=== PATIENT | female | born 1965 | race Caucasian/White ===

== ENCOUNTER → 2023-11-25 18:09 | Outpatient (REF) | payer OTHER, SELFPAY | LOC: WDC 18:09 | PROVIDERS: ATTENDING PHYSICIAN Obstetrics & Gynecology; FAMILY PHYSICIAN Family Medicine | DX: Z12.31 Encounter for screening mammogram for malignant neoplasm of breast (principal) | CPT/HCPCS: 77063; 77067 ==

== ENCOUNTER 2023-12-28 21:03 | Emergency (ER) | payer OTHER, SELFPAY ==
[2023-12-28 21:14] VITALS: BP 123/85
[2023-12-28 21:31] LABS: % Basophils 0.8 % (0-2); % Eosinophils 0.5 % (0-6); % Immature Granulocytes 0.3 % (0-0.5); % Lymphocytes 18.7 % (20.5-51.1); % Monocytes 8.4 % (1.7-9.3); % Neutrophils 71.3 % (42.2-75.2); Absolute Basophils 0.1 10^3/uL (0-0.2); Absolute Eosinophils 0.1 10^3/uL (0-0.7); Absolute Lymphocytes 1.9 10^3/uL (1.2-3.4); Absolute Monocytes 0.8 10^3/uL (0.1-0.6); Absolute Neutrophils 7.1 10^3/uL (1.4-6.5); Hematocrit 38.1 % (37.0-47.0); Hemoglobin 13.6 g/dL (12.0-16.0); Mean Corp Hgb Conc. 35.7 g/dL (33.0-37.0); Mean Corpuscular Hgb 30.8 pg (27.0-31.0); Mean Corpuscular Volume 86.4 fL (81.0-99.0); Mean Platelet Volume 10.6 fL (7.4-10.4); Nucleated Red Blood Cells % 0 %; Platelet Count 249 10^3/uL (130-400); Red Blood Cell Count 4.41 10^6/uL (4.20-5.40); Red Cell Dist. Width 12.9 % (11.5-14.5)
[2023-12-28 21:49] LABS: ALT (SGPT) 23 U/L (0-35); AST (SGOT) 23 U/L (14-36); Albumin 4.7 g/dl (3.5-5.0); Alkaline Phosphatase 59 U/L (38-126); Blood Urea Nitrogen 6 mg/dl (7-17); Calcium 9.6 mg/dl (8.4-10.2); Carbon Dioxide 20 mmol/L (22-30); Chloride 104 mmol/L (98-107); Glucose 112 mg/dl (70-99); Lipase 71 U/L (23-300); Potassium 3.9 mmol/L (3.5-5.1); Sodium 139 mmol/L (135-145); Total Bilirubin 0.9 mg/dl (0.2-1.3); Total Protein 7.1 g/dl (6.3-8.2); eGFR > 60.00
--- NOTE | 2023-12-29 00:07 | ED.GENMED ---
History of Present Illness
<ELROY Person - Last Filed: 12/29/23 00:55>
General
Chief Complaint: Abdominal Symptoms
Source: patient
Time Seen by Provider: 12/29/23 00:07
Nursing documentation reviewed up to this point in time: agreed with
History of Present Illness
History of Present Illness:
Patient is a 58 year old female with a PMH of a colectomy presenting to the ED with complaints of diarrhea x 4 days. She had an uncomplicated colectomy on 12/06/23 and was discharged from the hospital on 12/23/23. She had parts sigmoid colon
descending colon and rectum removed. She was allowed to eat normal food after discharge and on Wednesday she had shrimp salad. She had one bout of yellow diarrhea. Wednesday she had scallops and shrimp and had multiple episodes of diarrhea. Since then
she hasn't been drinking much and only eating a couple crackers and pieces of toast per day. She admits to feeling dehydrated. The diarrhea has been more frequent with time. She states today she went 19 times. Right before she has to go she gets an
episode of nausea and mild crampy abdominal pain but denies any vomiting or current abdominal pain. Patient states she hasn't tried any medication and nothing makes it worse. The bowel movements today have been around once an hour. She states they
are all the same, yellow in color with a watery/slimy consistency. She denies blood in stool. Patient denies sob fever headache dizziness flank pain rectal bleeding rectal pain.
Patient has a history of a colectomy which was uncomplicated. She does not take any daily medications.
Review of Systems
<ELROY Person - Last Filed: 12/29/23 00:55>
Review of Systems
Allergies reviewed?: Yes
Constitutional: Reports no symptoms
Respiratory: Reports no symptoms
Cardiac: Reports no symptoms
ABD/GI: Reports abdominal pain, nausea and diarrhea
Neurological: Reports no symptoms
Phy Exam
<DonteELROY Corona - Last Filed: 12/29/23 00:55>
General Physical Exam
General Presentation: well appearing
General age: appears stated age
General Habitus: normal
General Mental: alert
Cardiovascular Exam
Cardiovascular Exam: regular rate/rhythm, no edema, no gallop, no JVD and no murmur
Pulmonary Exam
Pulmonary Exam: lungs clear, no respiratory distress, no rales, chest non tender, no crackles, no rhonchi, no stridor, no wheezing and no cough
Gastrointestinal Exam
Gastrointestinal Exam: normal bowel sounds, non tender, soft, no organomegaly, no pulsatile mass, non distended and no cva tenderness
Palpation: generalized: No tenderness
Course
<Donte Leticia, STPA - Last Filed: 12/29/23 00:55>
Orders/Labs/Results
Orders:
Orders
12/28/23 21:23
Complete Blood Count/With Diff Urgent
Comprehensive Metabolic Panel Urgent
Lipase Urgent
12/29/23 01:46
Abdomen/Pelvis wo Contrast CT [CT Abd/pelvis Wo Iv Cont] Urgent
Comment:
Reason For Exam: diarrhea
Abnormal Lab Results
12/28/23
21:23
MPV 10.6 H fL
(7.4-10.4)
Absolute Neuts (auto) 7.1 H 10^3/uL
(1.4-6.5)
Absolute Monos (auto) 0.8 H 10^3/uL
(0.1-0.6)
Lymphocytes % 18.7 L %
(20.5-51.1)
Carbon Dioxide 20 L mmol/L
(22-30)
BUN 6 L mg/dl
(7-17)
Glucose 112 H mg/dl
(70-99)
12/28/23 21:23
12/28/23 21:23
Vital Signs
Initial and Last Documented VS:
Initial Vital Signs
Temp Pulse Resp Pulse Ox
98.5 F 106 19 98
12/28/23 21:11 12/28/23 21:11 12/28/23 21:11 12/28/23 21:11
Last Documented Vital Signs
Temp Pulse Resp BP Pulse Ox
98.5 F 106 19 123/85 98
12/28/23 21:11 12/28/23 21:11 12/28/23 21:11 12/28/23 21:14 12/28/23 21:11
<Jan Martin, - Last Filed: 12/29/23 03:59>
Orders/Labs/Results
Orders:
Orders
12/28/23 21:23
Complete Blood Count/With Diff Urgent
Comprehensive Metabolic Panel Urgent
Lipase Urgent
12/29/23 01:46
Abdomen/Pelvis wo Contrast CT [CT Abd/pelvis Wo Iv Cont] Urgent
Comment:
Reason For Exam: diarrhea
Abnormal Lab Results
12/28/23
21:23
MPV 10.6 H fL
(7.4-10.4)
Absolute Neuts (auto) 7.1 H 10^3/uL
(1.4-6.5)
Absolute Monos (auto) 0.8 H 10^3/uL
(0.1-0.6)
Lymphocytes % 18.7 L %
(20.5-51.1)
Carbon Dioxide 20 L mmol/L
(22-30)
BUN 6 L mg/dl
(7-17)
Glucose 112 H mg/dl
(70-99)
12/28/23 21:23
12/28/23 21:23
Vital Signs
Initial and Last Documented VS:
Initial Vital Signs
Temp Pulse Resp Pulse Ox
98.5 F 106 19 98
12/28/23 21:11 12/28/23 21:11 12/28/23 21:11 12/28/23 21:11
Last Documented Vital Signs
Temp Pulse Resp BP Pulse Ox
98.5 F 106 19 123/85 98
12/28/23 21:11 12/28/23 21:11 12/28/23 21:11 12/28/23 21:14 12/28/23 21:11
<ELROY Person - Last Filed: 12/29/23 00:55>
MDM/Problems Addressed
Differential Diagnosis Includes:
colectomy complication, gastroenteritis, dehydration,
MDM/Problems Addressed:
labs wnl give fluids and monitor
<ELROY Person - Last Filed: 12/29/23 00:55>
*Critical Care Note
Total Time (30-74mins, 75-104mins- exclusive of procedures): Not Applicable
<Jan Martin DO - Last Filed: 12/29/23 03:59>
Update Note
Update Note:
CT ABDOMEN AND PELVIS noncontrast
IMPRESSION:
Moderate to severe pancolonic wall thickening most compatible with a colitis. Most likely etiologies include infection (including C. difficile) and inflammation (i.e. ulcerative colitis).
Anastomosis in the rectosigmoid colon.
No bowel obstruction.
Small amount of pelvic free fluid.
In the left upper quadrant there is a 9 x 6 cm fatty area with a small amount of groundglass (for example series 201, image 40). This could be physiologic or related to lipomatosis, however an underlying lipomatous tumor cannot be excluded.
Consider short-term follow-up.
ED Attending Note
<ELROY Person - Last Filed: 12/29/23 00:55>
-
Portions of this chart may have been created with voice recognition software.� Occasional wrong word or��sound alike� substitutions may have occurred due to the inherent limitations of voice recognition software.
<Jan Martin DO - Last Filed: 12/29/23 03:59>
ED Attending Note
Patient seen and examined by attending physician: Yes
I performed the substantive portion of visit, reviewed & personally made and approve the management plan that is documented in note by myself or MICHELLE.: Yes
Discharge Plan
Departure
Patient Disposition: Home (Routine Discharge)
Date of Disposition: 12/29/23
Time of Disposition: 03:56
Patient with high blood pressure during this ER visit?: Yes
Condition: Good
Discharge Problem:
Abdominal pain, Colitis
Instructions: Colitis (DC), Abdominal Pain
Prescriptions:
New
ondansetron 4 mg tablet,disintegrating
4 mg PO TID PRN (Reason: nausea and vomiting) 4 Days Qty: 10 0RF
Referrals:
Tavo Lloyd MD [Family Provider] -
Activity Restrictions/Additional Instructions:
Your prescriptions were sent electronically to the pharmacy that you specified.
It was a pleasure meeting you and taking part in your care. We hope for your continued healing and wellness.
Please read discharge instructions in their entirety. However, they are for general education and may not describe your exact diagnosis at discharge. Information on your ER visit and medical conditions were discussed with you along with appropriate
follow up information...
If indicated, please take your medications as instructed and indicated on discharge paperwork.
Please schedule a follow up appointment as directed. Call to schedule an appointment
Please return to the emergency department with ANY change in, persisting, or worsening of symptoms. If any of your symptoms do not improve, or persist, or become more severe within 6-12 hours, please return to the emergency department for further
care.
Please return to the emergency department if you develop a headache, neck pain/stiffness, fever greater than 100.4F, chest pain, shortness of breath, persistent nausea, vomiting, slurred speech, difficulty walking, numbness/tingling, weakness, signs
of infection or any other symptoms that are worrisome to you.
If you have any questions or concerns please do not hesitate to call the Hospital at or E-mail me directly at [email or web address]
Interventions
Interventions:
*Risk Screen - Suicide Last Done: 12/28/23 21:04
*General Assessment Last Done: 12/28/23 21:17
*Neglect/Abuse Screening Last Done: 12/28/23 21:17
Discharge Date and Time
Print Language: SOMALI
[2023-12-29 04:00] VITALS: BP 137/79
[2023-12-29] MEDS: ZOFRAN ODT (ORALLY DISINTEGRATING) 4 MG PO (04:11)
== END 2023-12-29 04:50 | disposition home or self-care (01) ==
LOC: EMR 21:03
PROVIDERS: Emergency Medicine; EMERGENCY PHYSICIAN Student in an Organized Health Care Education/Training Program; FAMILY PHYSICIAN Family Medicine
DX: R10.9 Unspecified abdominal pain (principal); K52.9 Noninfective gastroenteritis and colitis, unspecified; Z90.49 Acquired absence of other specified parts of digestive tract
CPT/HCPCS: 99284; 74176; 80053; 83690; 85025

== ENCOUNTER 2024-03-22 11:53 | Emergency (ER) | payer OTHER, SELFPAY ==
[2024-03-22 12:00] VITALS: BP 152/102
--- NOTE | 2024-03-22 14:12 | ED.GENMED ---
History of Present Illness
General
Chief Complaint: Allergic Reaction
Source: patient
Exam Limitations: none
Time Seen by Provider: 03/22/24 14:05
Nursing documentation reviewed up to this point in time: agreed with
History of Present Illness
History of Present Illness:
Patient with history of asthma, presents to ED secondary to persistent cough and shortness of breath over the past 5 days. Patient was evaluated by evaluated telemedicine, who prescribed Flonase inhaler, Tessalon Perle, albuterol inhaler, and
promethazine. Last night, on approxi-1 hour after administering Flonase inhaler and taking Tessalon Perle, patient started to experience right facial rash with swelling as well as gum pain. This morning, patient is taking Benadryl, with
improvement in symptoms. When she spoke with telemedicine provider, she was recommended to come to ED for an evaluation. Denies fever or chills. Denies chest pain. Denies nausea, vomiting, or diarrhea. Patient reports decreased appetite, but
states that she has been drinking fluids and eating. Patient has had similar symptoms in the past, and treated for acute bronchitis.
Review of Systems
Review of Systems
Allergies reviewed?: Yes
All Other Systems: ROS reviewed and negative except as documented in HPI and ROS
Constitutional: Reports no symptoms; Denies fever or chills
Respiratory: Reports cough and trouble breathing
Cardiac: Reports no symptoms
ABD/GI: Reports no symptoms; Denies nausea, vomiting or diarrhea
Musculoskeletal: Reports no symptoms
Skin: Reports no symptoms
Neurological: Reports no symptoms; Denies headache
Phy Exam
Physical Exam
Physical Exam:
Physical Exam
General: no apparent distress, not acutely ill. afebrile
Head: nc/at. eomi
Neck: supple. no meningeal signs. normal posterior pharynx
Heart: s1/s2 regular rate and rhythm, no murmur. equal radial pulses.
Lungs: no acute respiratory distress. clear bilaterally
Abdomen: normal bowel sounds. not tender.
Neuro: alert and oriented x 3. no focal neurological deficits. normal speech.
Skin: mild b/l facial erythema/swelling note.
Psychiatric: well kept. interactive and cooperative
Extremities: no edema. no calf tenderness.
Course
Orders/Labs/Results
Orders:
Orders
03/22/24 14:18
Azithromycin [Zithromax] 500 mg PO NOW STA
Prednisone [Deltasone] 50 mg PO NOW STA
Vital Signs
Initial and Last Documented VS:
Initial Vital Signs
Temp Pulse Resp BP Pulse Ox
98.3 F 91 18 152/102 99
03/22/24 12:00 03/22/24 12:00 03/22/24 12:00 03/22/24 12:00 03/22/24 12:00
Last Documented Vital Signs
Temp Pulse Resp BP Pulse Ox
98.3 F 81 18 144/80 99
03/22/24 12:00 03/22/24 14:34 03/22/24 14:34 03/22/24 14:34 03/22/24 14:34
MDM/Problems Addressed
MDM/Problems Addressed:
History and exam consistent with upper respiratory infection versus bronchitis, along with possible mild drug reaction, without any respiratory compromise. Patient will be advised to stop utilizing Flonase and Tessalon Perle, but will be prescribed
short course of prednisone along with Z-Grant, as well as recommendation for PCP follow-up as an outpatient.
*Critical Care Note
Total Time (30-74mins, 75-104mins- exclusive of procedures): Not Applicable
ED Attending Note
-
Portions of this chart may have been created with voice recognition software.� Occasional wrong word or��sound alike� substitutions may have occurred due to the inherent limitations of voice recognition software.
Discharge Plan
Departure
Patient Disposition: Home (Routine Discharge)
Date of Disposition: 03/22/24
Time of Disposition: 14:17
Patient with high blood pressure during this ER visit?: Yes
Condition: Good
Discharge Problem:
Acute bronchitis, Allergic drug reaction
Instructions: Adverse Drug Reactions, Adult (DC), Bronchitis in adults - ED discharge instructions
Prescriptions:
New
prednisone 50 mg Tablet
50 mg PO DAILY Qty: 2 0RF
azithromycin [Zithromax] 250 mg tablet
250 mg PO DAILY 4 Days Qty: 4 0RF
No Action
ondansetron 4 mg tablet,disintegrating
4 mg PO TID PRN (Reason: nausea and vomiting) 4 Days Qty: 10 0RF
Referrals:
Tavo Lloyd MD [Family Provider] -
Activity Restrictions/Additional Instructions:
As discussed, please follow-up with your primary care physician for reevaluation. Your prescriptions have been sent electronically to [facility] pharmacy in [place]
Interventions
Interventions:
*Risk Screen - Suicide Last Done: 03/22/24 12:00
*General Assessment Last Done: 03/22/24 12:00
*Neglect/Abuse Screening Last Done: 03/22/24 12:00
ED- Fall Risk Assessment Last Done: 03/22/24 14:34
*ED COVID-19 Vaccine History Last Done: 03/22/24 12:00
*Nursing Disposition Last Done: 03/22/24 14:34
ED- Cardiac Assessment Last Done: 03/22/24 14:34
ED- Pulmonary Assessment Last Done: 03/22/24 14:34
ED-Skin Assessment Last Done: 03/22/24 14:34
Discharge Date and Time
Discharge Date/Time: 03/22/24 14:36
Print Language: [place]
[2024-03-22] MEDS: ZITHROMAX 500 MG PO (14:24)
[2024-03-22] MEDS: DELTASONE 50 MG PO (14:24)
[2024-03-22 14:34] VITALS: BP 144/80
== END 2024-03-22 14:36 | disposition home or self-care (01) ==
LOC: EMR 11:53
PROVIDERS: EMERGENCY PHYSICIAN Emergency Medicine; FAMILY PHYSICIAN Family Medicine
DX: J20.9 Acute bronchitis, unspecified (principal); L27.1 Localized skin eruption due to drugs and medicaments taken internally; R05.9 Cough, unspecified; R06.00 Dyspnea, unspecified; K08.89 Other specified disorders of teeth and supporting structures; T50.915A Adverse effect of multiple unspecified drugs, medicaments and biological substances, initial encounter; K57.90 Diverticulosis of intestine, part unspecified, without perforation or abscess without bleeding; G43.909 Migraine, unspecified, not intractable, without status migrainosus
CPT/HCPCS: 99283

== ENCOUNTER 2024-03-31 12:31 | Emergency (ER) | payer OTHER, SELFPAY ==
[2024-03-31 12:41] VITALS: BP 127/84
--- NOTE | 2024-03-31 12:46 | ED.GENMED ---
ED Provider Triage
<Blake Alegria PA-C - Last Filed: 03/31/24 12:48>
-
Patient seen by provider in Triage?: Seen in Triage
58-year-old female presents with persistent cough and shortness of breath. She was here 9 days ago for acute bronchitis. She had a chest x-ray outpatient yesterday that was negative. She has been tested for COVID flu and RSV in the past 2 days
which were negative. She notes pronounced shortness of breath with chest tightness. She denies hemoptysis
Patient is tachycardic at triage. She continues to cough. Given her tachycardia persistent chest tightness with multiple antibiotics and inhalers will order PE study. EKG and labs ordered as well
Seen by healthcare provider at triage but warrants further dorsalis
History of Present Illness
<Blake Alegria PA-C - Last Filed: 03/31/24 12:48>
General
Chief Complaint: Breathing Problem
Time Seen by Provider: 03/31/24 18:01
<Minh Valente Jr., PA-C - Last Filed: 03/31/24 21:20>
General
Source: patient
Exam Limitations: none
Nursing documentation reviewed up to this point in time: agreed with
History of Present Illness
History of Present Illness:
58-year-old female past medical history of asthma presenting to the emergency department today with concerns of shortness of breath this morning with wheezing she believes it was an asthma attack. She has been taking moxifloxacin as well as
azithromycin as well as a steroid starting yesterday. Denies any ongoing chest pain does still have some upper respiratory symptoms. Throat pain has been improving. Had some mild upper respiratory symptoms over the past 2 weeks.
Review of Systems
<Minh Valente Jr., PA-C - Last Filed: 03/31/24 21:20>
Review of Systems
Allergies reviewed?: Yes
All Other Systems: ROS reviewed and negative except as documented in HPI and ROS
Phy Exam
<Minh Valente Jr., PA-C - Last Filed: 03/31/24 21:20>
Physical Exam
Physical Exam:
GENERAL: Alert , in no apparent distress
EYE: pupils equal and reactive
NECK: Supple, no significant adenopathy.
ENT: Swollen boggy nasal turbinates, postnasal drip, mild redness to the posterior pharynx without significant tonsillar swelling no exudate, uvula midline o/p clr, mmm.
CARDIAC: Regular rate and rhythm .
LUNGS: Clear breath sounds bilaterally, no acute respiratory distress, no wheezes/rales/rhonchi
ABDOMEN: Soft, without focal tenderness, no r/g, no cvat
NEUROLOGICAL: Alert and oriented, no focal neuro deficits
SKIN: Warm and dry, skin intact.
MUSCULOSKELETAL: No edema, well perfused.
PSYCH: Normal and appropriate interaction.
Scores
<Minh Valente Jr., PA-C - Last Filed: 03/31/24 21:20>
Heart Failure Risk
Heart Failure Risk Score: Not Applicable
Course
<Blake Alegria PA-C - Last Filed: 03/31/24 12:48>
Orders/Labs/Results
Orders:
Orders
03/31/24 12:44
CT Chest PE Study Urgent
Comment:
Reason For Exam: sob
03/31/24 12:45
Electrocardiogram (*1) Urgent
Reason for Study: Shortness of Breath
EKG- Treatment ONCE
03/31/24 12:52
Complete Blood Count/With Diff Urgent
Comprehensive Metabolic Panel Urgent
Abnormal Lab Results
03/31/24
12:52
WBC 12.8 H 10^3/uL
(4.8-10.8)
Abs Immat Gran (auto) 0.1 H 10^3/uL
(0-0.05)
Absolute Neuts (auto) 10.7 H 10^3/uL
(1.4-6.5)
Immature Gran % 0.7 H %
(0-0.5)
Neutrophils % 83.4 H %
(42.2-75.2)
Lymphocytes % 9.9 L %
(20.5-51.1)
Glucose 125 H mg/dl
(70-99)
03/31/24 12:52
03/31/24 12:52
Vital Signs
Initial and Last Documented VS:
Initial Vital Signs
Temp Pulse Resp BP Pulse Ox
97.7 F 100 18 127/84 98
03/31/24 12:41 03/31/24 12:41 03/31/24 12:41 03/31/24 12:41 03/31/24 12:41
Last Documented Vital Signs
Temp Pulse Resp BP Pulse Ox
97.9 F 84 18 132/82 98
03/31/24 16:17 03/31/24 16:17 03/31/24 16:17 03/31/24 18:07 03/31/24 18:10
<Minh Valente Jr., PA-C - Last Filed: 03/31/24 21:20>
Orders/Labs/Results
Orders:
Orders
03/31/24 12:44
CT Chest PE Study Urgent
Comment:
Reason For Exam: sob
03/31/24 12:45
Electrocardiogram (*1) Urgent
Reason for Study: Shortness of Breath
EKG- Treatment ONCE
03/31/24 12:52
Complete Blood Count/With Diff Urgent
Comprehensive Metabolic Panel Urgent
Abnormal Lab Results
03/31/24
12:52
WBC 12.8 H 10^3/uL
(4.8-10.8)
Abs Immat Gran (auto) 0.1 H 10^3/uL
(0-0.05)
Absolute Neuts (auto) 10.7 H 10^3/uL
(1.4-6.5)
Immature Gran % 0.7 H %
(0-0.5)
Neutrophils % 83.4 H %
(42.2-75.2)
Lymphocytes % 9.9 L %
(20.5-51.1)
Glucose 125 H mg/dl
(70-99)
03/31/24 12:52
03/31/24 12:52
Vital Signs
Initial and Last Documented VS:
Initial Vital Signs
Temp Pulse Resp BP Pulse Ox
97.7 F 100 18 127/84 98
03/31/24 12:41 03/31/24 12:41 03/31/24 12:41 03/31/24 12:41 03/31/24 12:41
Last Documented Vital Signs
Temp Pulse Resp BP Pulse Ox
97.9 F 84 18 132/82 98
03/31/24 16:17 03/31/24 16:17 03/31/24 16:17 03/31/24 18:07 03/31/24 18:10
<Minh Valente Jr., PA-C - Last Filed: 03/31/24 21:20>
MDM/Problems Addressed
MDM/Problems Addressed:
58-year-old female presenting to the emergency department today with concerns what she believes was an asthma attack this morning she has been treated with steroid antibiotics for upper respiratory symptoms over the past 2 weeks but medication
started 2 days ago. On arrival here mildly tachycardic otherwise vital signs normal. Improving without specific treatment. Labs normal here CT scan was performed that did not show any emergent findings no signs of pneumonia. Patient generally
well-appearing here lungs are clear patient does appear stable for outpatient management no emergent findings. Return precautions given.
<Minh Valente Jr., PA-C - Last Filed: 03/31/24 21:20>
*Critical Care Note
Total Time (30-74mins, 75-104mins- exclusive of procedures): Not Applicable
ED Attending Note
<Blake Alegria PA-C - Last Filed: 03/31/24 12:48>
-
Portions of this chart may have been created with voice recognition software.� Occasional wrong word or��sound alike� substitutions may have occurred due to the inherent limitations of voice recognition software.
Discharge Plan
Departure
Patient Disposition: Home (Routine Discharge)
Date of Disposition: 03/31/24
Time of Disposition: 18:29
Patient with high blood pressure during this ER visit?: No
Condition: Good
Covid-19: Not Applicable
Discharge Problem:
Acute bronchitis
Instructions: Asthma, Adult (DC), Acute Bronchitis, Adult (DC)
Prescriptions:
New
albuterol sulfate 2.5 mg /3 mL (0.083 %) solution for nebulization
2.5 mg inhalation QID PRN (Reason: bronchospasm) Qty: 180 0RF
No Action
ondansetron 4 mg tablet,disintegrating
4 mg PO TID PRN (Reason: nausea and vomiting) 4 Days Qty: 10 0RF
prednisone 50 mg Tablet
50 mg PO DAILY Qty: 2 0RF
azithromycin [Zithromax] 250 mg tablet
250 mg PO DAILY 4 Days Qty: 4 0RF
Activity Restrictions/Additional Instructions:
You came to the emergency department today with concerns of ongoing respiratory symptoms. Here you had a reassuring assessment you have a normal CT scan and labs and EKG. Please follow close with the primary care doctor and continue her outpatient
medications. Return to the emergency department for any worsening, new or concerning symptoms.
Interventions
Interventions:
*Risk Screen - Suicide Last Done: 03/31/24 12:41
*General Assessment Last Done: 03/31/24 12:41
*Neglect/Abuse Screening Last Done: 03/31/24 12:41
ED- Fall Risk Assessment Last Done: 03/31/24 18:37
*ED COVID-19 Vaccine History Last Done: 03/31/24 12:41
*Nursing Disposition Last Done: 03/31/24 18:37
ED- Cardiac Assessment Last Done: 03/31/24 18:10
ED- Pulmonary Assessment Last Done: 03/31/24 18:10
Discharge Date and Time
Discharge Date/Time: 03/31/24 18:49
Print Language: [id number]
[2024-03-31 13:07] LABS: % Basophils 0.5 % (0-2); % Eosinophils 0.7 % (0-6); % Immature Granulocytes 0.7 % (0-0.5); % Lymphocytes 9.9 % (20.5-51.1); % Monocytes 4.8 % (1.7-9.3); % Neutrophils 83.4 % (42.2-75.2); Absolute Basophils 0.1 10^3/uL (0-0.2); Absolute Eosinophils 0.1 10^3/uL (0-0.7); Absolute Immature Granulocytes 0.1 10^3/uL (0-0.05); Absolute Lymphocytes 1.3 10^3/uL (1.2-3.4); Absolute Monocytes 0.6 10^3/uL (0.1-0.6); Absolute Neutrophils 10.7 10^3/uL (1.4-6.5); Hematocrit 39.5 % (37.0-47.0); Hemoglobin 13.5 g/dL (12.0-16.0); Mean Corp Hgb Conc. 34.2 g/dL (33.0-37.0); Mean Corpuscular Volume 87.8 fL (81.0-99.0); Nucleated Red Blood Cells % 0 %; Platelet Count 298 10^3/uL (130-400); Red Cell Dist. Width 13.1 % (11.5-14.5); White Blood Cell Count 12.8 10^3/uL (4.8-10.8)
[2024-03-31 13:16] LABS: ALT (SGPT) 29 U/L (0-35); AST (SGOT) 25 U/L (14-36); Albumin 4.7 g/dl (3.5-5.0); Alkaline Phosphatase 64 U/L (38-126); Blood Urea Nitrogen 10 mg/dl (7-17); Calcium 9.5 mg/dl (8.4-10.2); Carbon Dioxide 24 mmol/L (22-30); Chloride 104 mmol/L (98-107); Glucose 125 mg/dl (70-99); Potassium 3.7 mmol/L (3.5-5.1); Sodium 140 mmol/L (135-145); Total Bilirubin 0.3 mg/dl (0.2-1.3); Total Protein 7.3 g/dl (6.3-8.2); eGFR > 60.00
[2024-03-31 16:17] VITALS: BP 113/78
[2024-03-31 18:07] VITALS: BP 132/82
== END 2024-03-31 18:49 | disposition home or self-care (01) ==
LOC: EMR 12:31
PROVIDERS: Physician Assistant; EMERGENCY PHYSICIAN Student in an Organized Health Care Education/Training Program; FAMILY PHYSICIAN Family Medicine
DX: J20.9 Acute bronchitis, unspecified (principal); J45.909 Unspecified asthma, uncomplicated
CPT/HCPCS: 99284; 71275; 80053; 85025; 93005; Q9967

== ENCOUNTER 2024-04-13 16:54 | Emergency (ER) | payer OTHER, SELFPAY ==
[2024-04-13 17:13] VITALS: BP 143/88
[2024-04-13 17:48] LABS: % Basophils 0.4 % (0-2); % Eosinophils 2.3 % (0-6); % Immature Granulocytes 0.5 % (0-0.5); % Lymphocytes 18.4 % (20.5-51.1); % Monocytes 5.5 % (1.7-9.3); % Neutrophils 72.9 % (42.2-75.2); Absolute Eosinophils 0.2 10^3/uL (0-0.7); Absolute Immature Granulocytes 0.1 10^3/uL (0-0.05); Absolute Lymphocytes 1.8 10^3/uL (1.2-3.4); Absolute Monocytes 0.5 10^3/uL (0.1-0.6); Absolute Neutrophils 6.9 10^3/uL (1.4-6.5); Hematocrit 38.4 % (37.0-47.0); Hemoglobin 12.8 g/dL (12.0-16.0); Mean Corp Hgb Conc. 33.3 g/dL (33.0-37.0); Mean Corpuscular Hgb 29.6 pg (27.0-31.0); Mean Corpuscular Volume 88.7 fL (81.0-99.0); Mean Platelet Volume 9.5 fL (7.4-10.4); Nucleated Red Blood Cells % 0 %; Platelet Count 293 10^3/uL (130-400); Red Blood Cell Count 4.33 10^6/uL (4.20-5.40); Red Cell Dist. Width 13.2 % (11.5-14.5); White Blood Cell Count 9.5 10^3/uL (4.8-10.8)
[2024-04-13 18:03] LABS: ALT (SGPT) 86 U/L (0-35); AST (SGOT) 52 U/L (14-36); Albumin 4.4 g/dl (3.5-5.0); Alkaline Phosphatase 139 U/L (38-126); Blood Urea Nitrogen 7 mg/dl (7-17); Calcium 9.3 mg/dl (8.4-10.2); Carbon Dioxide 25 mmol/L (22-30); Chloride 99 mmol/L (98-107); Glucose 110 mg/dl (70-99); Potassium 4.3 mmol/L (3.5-5.1); Sodium 134 mmol/L (135-145); Total Bilirubin 0.8 mg/dl (0.2-1.3); Total Protein 7.2 g/dl (6.3-8.2); eGFR > 60.00
[2024-04-13 22:09] VITALS: BP 140/87
[2024-04-13 22:10] VITALS: BMI 26.8
--- NOTE | 2024-04-13 23:16 | ED.GENMED ---
History of Present Illness
General
Chief Complaint: Breathing Problem
Source: patient
Exam Limitations: none
Time Seen by Provider: 04/13/24 22:28
Nursing documentation reviewed up to this point in time: agreed with
History of Present Illness
History of Present Illness:
Patient is a 58-year-old female with past medical history asthma who presents to the ER for evaluation. Patient reports she has been sick since February with cough. She was seen in the ER March and with bronchitis. She has had negative
COVID flu and COVID tests. At that time she had a CT PE scan which was negative. She has completed 2 packs of Z-Grant (completed last week) however she still complains of cough and shortness of breath. She has been using albuterol at home.
She started with a fever of 101.9 on Wednesday and also started with a rash to her legs. She reports her legs feel warm to touch bilaterally but they are not itchy. also notes rash to left hand developed today.
Review of Systems
Review of Systems
Allergies reviewed?: Yes
All Other Systems: ROS reviewed and negative except as documented in HPI and ROS
Constitutional: Reports fever; Denies fatigue or chills
EENT: Reports no symptoms
Respiratory: Reports cough and trouble breathing
Cardiac: Reports no symptoms
ABD/GI: Reports no symptoms
: Reports no symptoms
Musculoskeletal: Reports no symptoms
Skin: Reports other (Rash to bilateral legs left hand)
Neurological: Reports no symptoms
Psychiatric: Reports no symptoms
Phy Exam
General Physical Exam
General Presentation: no apparent distress
General age: appears stated age
General Skin: warm and dry
General Habitus: normal
General Mental: alert
Cardiovascular Exam
Cardiovascular Exam: regular rate/rhythm, no murmur and normal peripheral pulses
Pulmonary Exam
Pulmonary Exam: other ( + cough , slight exp wheeze )
Neurological Exam
Neurological Exam: alert and oriented x3
Musculoskeletal Exam
Musculoskeletal Exam: full ROM
Skin Exam
Skin Exam: normal color and warm/dry
Scores
Heart Failure Risk
Heart Failure Risk Score: Not Applicable
Course
Orders/Labs/Results
Orders:
Orders
04/13/24 17:16
Electrocardiogram (*1) Urgent
Reason for Study: Other
Other Reason for Exam: Respiratory Distress
EKG- Treatment ONCE
CR Chest - 2 Views Urgent
Comment:
Reason For Exam: respiratory distress
04/13/24 17:35
Complete Blood Count/With Diff Urgent
Comprehensive Metabolic Panel Urgent
04/13/24 23:33
Dexamethasone Sod Phosphate [Decadron] 10 mg IV NOW STA
04/13/24 23:34
Ipratropium/Albuterol Sulfate [Duoneb] 3 ml INH R NOW STA
04/14/24 00:03
0.9% Sodium Chloride 1000 ml [Nss] 1,000 ml IV BOLUS
04/14/24 00:04
Acetaminophen [Tylenol] 1,000 mg PO NOW STA
04/14/24 00:58
Ipratropium/Albuterol Sulfate [Duoneb] 3 ml .ROUTE .STK-MED ONE
04/14/24 01:02
Albuterol Nebs [Ventolin Nebules] 2.5 mg INH R NOW STA
Abnormal Lab Results
04/13/24
17:35
Abs Immat Gran (auto) 0.1 H 10^3/uL
(0-0.05)
Absolute Neuts (auto) 6.9 H 10^3/uL
(1.4-6.5)
Lymphocytes % 18.4 L %
(20.5-51.1)
Sodium 134 L mmol/L
(135-145)
Glucose 110 H mg/dl
(70-99)
AST 52 H U/L
(14-36)
ALT 86 H U/L
(0-35)
Alkaline Phosphatase 139 H U/L
(38-126)
04/13/24 17:35
04/13/24 17:35
Vital Signs
Initial and Last Documented VS:
Initial Vital Signs
Temp Pulse Resp BP Pulse Ox
99.7 F 95 16 143/88 96
04/13/24 17:13 04/13/24 17:13 04/13/24 17:13 04/13/24 17:13 04/13/24 17:13
Last Documented Vital Signs
Temp Pulse Resp BP Pulse Ox
98.5 F 95 16 140/87 97
04/14/24 00:20 04/13/24 17:13 04/13/24 17:13 04/13/24 22:09 04/13/24 22:14
Design Studio Consultant consulted with Physician
Design Studio Consultant consulted with physician?: Yes
Name of Physician Consulted: Rolanda
MDM/Problems Addressed
MDM/Problems Addressed:
Patient is a 58-year-old female who has been sick with cough off and on since the end of February. She was seen here March 31 for persistent symptoms at that time she had a CAT scan which ruled out PE. She reports she has had persistent symptoms
over the past several days however developed fever worsening wheezing shortness of breath. She has been using nebulizers at home along with inhalers. She did complete 2 antibiotics of Zithromax last completed 1 week ago. She also started with
rash to bilateral legs and left hand which is not itchy.
Patient presents awake alert no acute distress nontachycardic audible cough with slight expiratory wheeze. Chest x-ray reads mild amount of dependent subpleural ground glass opacity likely dependent atelectasis mild pneumonia is less likely.
Patient has a normal white count minimally elevated LFTs which is new.
Patient was given Decadron here along with DuoNeb and now feeling much better reports her breathing is much better she ambulated and is not hypoxic. Case discussed with Dr. Orantes who reviewed patient's rash erythema nodosum is considered however
patient is nontoxic and feeling much better. Will hold off on any additional antibiotics. Patient received Decadron here. Will DC with 40 mg of prednisone for the next 4 days however I did review with patient the importance of close outpatient
follow family doctor for further evaluation of cough and rash and also to have her LFTs redrawn as they were minimally elevated here.
She is nontoxic nontachypneic and not hypoxic here in the ER stable for discharge home.
*Radiology
Radiology exam reviewed: radiology read reviewed
*Pulse Oximetry
Patient hypoxic: no
*Critical Care Note
Total Time (30-74mins, 75-104mins- exclusive of procedures): Not Applicable
ED Attending Note
-
Portions of this chart may have been created with voice recognition software.� Occasional wrong word or��sound alike� substitutions may have occurred due to the inherent limitations of voice recognition software.
Discharge Plan
Departure
Patient Disposition: Home (Routine Discharge)
Date of Disposition: 04/14/24
Time of Disposition: 01:08
Patient with high blood pressure during this ER visit?: Yes
Covid-19: Not Applicable
Discharge Problem:
Bronchitis, Rash
Instructions: Acute bronchitis in adults
Prescriptions:
New
prednisone 20 mg tablet
40 mg PO DAILY Qty: 10 0RF
No Action
ondansetron 4 mg tablet,disintegrating
4 mg PO TID PRN (Reason: nausea and vomiting) 4 Days Qty: 10 0RF
prednisone 50 mg Tablet
50 mg PO DAILY Qty: 2 0RF
azithromycin [Zithromax] 250 mg tablet
250 mg PO DAILY 4 Days Qty: 4 0RF
albuterol sulfate 2.5 mg /3 mL (0.083 %) solution for nebulization
2.5 mg inhalation QID PRN (Reason: bronchospasm) Qty: 180 0RF
Referrals:
Tavo Lloyd MD [Family Provider] -
Activity Restrictions/Additional Instructions:
As discussed symptoms are likely bronchitis you were given steroids here in the ER and a prescription was sent to the pharmacy for the next 4 days start tomorrow.
Please follow-up with your family doctor for reevaluation of rash to your legs. Call tomorrow to make an appointment in the next 2 days. Also as discussed your liver functions are mildly elevated please have this rechecked by your family doctor in
the next week.
Stay well hydrated.
Return if any worsening of symptoms if increasing shortness of breath,fevers, worsening rash or any further concerns
Interventions
Interventions:
*Risk Screen - Suicide Last Done: 04/13/24 17:13
*General Assessment Last Done: 04/13/24 22:12
*Neglect/Abuse Screening Last Done: 04/13/24 17:13
ED- Fall Risk Assessment Last Done: 04/13/24 22:14
*ED COVID-19 Vaccine History Last Done: 04/13/24 22:12
ED- Cardiac Assessment Last Done: 04/13/24 22:14
ED- Pulmonary Assessment Last Done: 04/13/24 22:14
Discharge Date and Time
Print Language: [id number]
[2024-04-14] MEDS: TYLENOL 1000 MG PO (00:07)
[2024-04-14] MEDS: NSS 1000 IV (00:15)
[2024-04-14] MEDS: DUONEB 3 ML INH (00:15)
[2024-04-14] MEDS: DECADRON 10 MG IV (00:16)
[2024-04-14] MEDS: VENTOLIN NEBULES 2.5 MG INH (01:08)
== END 2024-04-14 02:21 | disposition home or self-care (01) ==
LOC: EMR 16:54
PROVIDERS: Emergency Medicine; EMERGENCY PHYSICIAN Emergency Medicine; FAMILY PHYSICIAN Family Medicine
DX: J20.9 Acute bronchitis, unspecified (principal); R21 Rash and other nonspecific skin eruption; J45.909 Unspecified asthma, uncomplicated
CPT/HCPCS: 99285; 96374; 94640; 96361; 71046; 80053; 85025; 93005

== ENCOUNTER → 2024-11-29 16:31 | Outpatient (REF) | payer OTHER, SELFPAY | LOC: WDC 16:31 | PROVIDERS: ATTENDING PHYSICIAN Obstetrics & Gynecology; FAMILY PHYSICIAN Family Medicine | DX: Z12.31 Encounter for screening mammogram for malignant neoplasm of breast (principal) | CPT/HCPCS: 77063; 77067 ==